=== PATIENT | male | born 1945 ===

== ENCOUNTER 2017-07-15 03:53 | Inpatient (IN) | payer OTHER ==
--- NOTE | 2017-07-15 04:01 | C.PDOC ---
History Of Present Illness pt was admitted to [facility], for hyperglycemia and nstemi. increasing troponin levels as well as hypotension, pt was transfered and accepted by dr leigh for emergent cardiac cath. Pt stable at the present time. BP 126/76 on levaphed Time Seen by Provider: 07/15/17 04:01 Chief Complaint (Nursing): Chest Pain History Per: Patient History/Exam Limitations: no limitations Onset/Duration Of Symptoms: Days Current Symptoms Are (Timing): Worse Context: Other Severity: Severe Pain Scale Rating Of: 7 Quality: Dull, Pressure Associated Symptoms: denies: Nausea Modifying Factors: None Exacerbating Factors: None Nitro Therapy Administered: 3 Recent travel outside of the [place]: No Additional History Per: Patient Past Medical History Reviewed: Historical Data, Nursing Documentation, Vital Signs Vital Signs: Last Vital Signs Temp 97.0 F L 07/15/17 04:10 Pulse 78 07/15/17 04:35 Resp 23 07/15/17 04:35 BP 115/65 07/15/17 04:35 Pulse Ox 94 L 07/15/17 05:10 - Medical History PMH: Diabetes, HTN Family History: States: No Known Family Hx - Social History Hx Alcohol Use: No Hx Substance Use: No Review Of Systems Constitutional: Negative for: Fever Eyes: Negative for: Redness ENT: Negative for: Throat Pain Cardiovascular: Positive for: Chest Pain Respiratory: Positive for: Shortness of Breath Gastrointestinal: Positive for: Nausea. Negative for: Abdominal Pain Musculoskeletal: Negative for: Back Pain Skin: Negative for: Rash Neurological: Negative for: Weakness Psych: Negative for: Anxiety Physical Exam - Physical Exam Appears: In Acute Distress Skin: Warm, Dry Head: Normacephalic Eye(s): bilateral: Normal Inspection Oral Mucosa: Moist Neck: Supple, Other (left IJ) Chest: Symmetrical Cardiovascular: Rhythm Regular Respiratory: No Rales, Rhonchi (few) Gastrointestinal/Abdominal: Soft, No Tenderness Back: No CVA Tenderness Extremity: Normal ROM, Other (poor vascular skin changes) Extremity: Bilateral: Atraumatic Pulses: Left Dorsalis Pedis: Normal, Right Dorsalis Pedis: Normal Neurological/Psych: Oriented x3 Gait: Unable To Assess ED Course And Treatment ECG: Interpreted By Me, Viewed By Me ECG Rhythm: Sinus Rhythm (82), ST/T Changes (ant ), Nonspecific Changes (ant wall mi) O2 Sat by Pulse Oximetry: 94 Pulse Ox Interpretation: Normal Disposition Discussed With DrShannon: Geoff Leigh Comment: accepted the pt on his service and took over the care at 4 AM Doctor Will See Patient In The: ED Counseled Patient/Family Regarding: Studies Performed, Diagnosis - Disposition Referrals: Fior Diaz [[employer]] - Disposition: HOSPITALIZED Disposition Time: 04:01 Condition: CRITICAL Forms: [facility] ([place]) - Clinical Impression Clinical Impression: Chest pain, NSTEMI (non-ST elevated myocardial infarction)
[2017-07-15] MEDS ORDERED: Iodixanol 320 MG/ML 200 ML BOTTLE IV ONE (05:30)
[2017-07-15] MEDS ORDERED: Heparin25000 units/250ml 1/2NS 25,000 UNITS/250 ML BAG IV PRN (07:30)
[2017-07-15] MEDS ORDERED: Propofol 10 mg/ml 1,000 MG/100 ML VIAL IV PRN (08:34)
[2017-07-15 08:57] LABS: ABG ALLEN TEST POS; ARTERIAL BLOOD GAS HCO3 15.7 mmol/L (21-28); ARTERIAL BLOOD GAS O2 SAT 85.7 % (95-98); ARTERIAL BLOOD GAS PCO2 39 mm/Hg (35-45); ARTERIAL BLOOD GAS PH 7.22 (7.35-7.45); ARTERIAL BLOOD GAS PO2 50 mm/Hg (80-100); ARTERIAL BLOOD GAS TCO2 17.2 mmol/L (22-28)
[2017-07-15 09:55] LABS: BASO # 0.1 K/uL (0.0-0.2); BASO % 0.6 % (0.0-2.0); HEMOGLOBIN 12.1 g/dL (12.0-18.0); LYMPH # 0.6 K/uL (1.0-4.3); LYMPH % 7.7 % (20.0-40.0); MEAN CELL VOLUME 89.9 fL (80.0-94.0); MEAN CORPUSCULAR HEMOGLOBIN 30.7 pg (27.0-31.0); MEAN CORPUSCULAR HGB CONC 34.2 g/dL (33.0-37.0); MEAN PLATELET VOLUME 7.8 fL (7.2-11.7); MONO # 0.2 K/uL (0.0-0.8); MONO % 2.4 % (0.0-10.0); NEUT # 7.1 K/uL (1.8-7.0); NEUT % 89.3 % (50.0-75.0); PLATELET COUNT 359 K/uL (130-400); RBC 3.93 Mil/uL (4.40-5.90); RED CELL DISTRIBUTION WIDTH 14.7 % (11.5-14.5); WHITE BLOOD COUNT 7.9 K/uL (4.8-10.8)
--- NOTE | 2017-07-15 09:59 | RAD ---
HISTORY: sob COMPARISON: No prior. FINDINGS: LUNGS: Diffuse opacification of both lungs predominantly in a perihilar distribution. PLEURA: No significant pleural effusion identified, no pneumothorax apparent. CARDIOVASCULAR: Atherosclerotic aortic calcifications. Cardiomediastinal silhouette within normal limits. OSSEOUS STRUCTURES: Degenerative changes. VISUALIZED UPPER ABDOMEN: Normal. OTHER FINDINGS: Endotracheal tube with tip between the clavicles and mandy. Enteric tube with tip in the stomach. Left internal jugular access central venous catheter with tip in the proximal SVC. Intra-aortic balloon pump marker approximately 2-3 centimeters inferior to the aortic knob. Overlying cardiac pacer pads. IMPRESSION: Diffuse pulmonary vascular congestion/ edema/ ARDS. Above described lines and tubes all in satisfactory position.
[2017-07-15 10:40] LABS: BANDS 31 % (0-2); LYMPHOCYTE 11 % (20-40); MONOCYTE 2 % (0-10); NEUTROPHIL 56 % (50-75); PLATELET ESTIMATE NORMAL (NORMAL); TOTAL CELLS COUNTED 100
[2017-07-15 10:41] LABS: BURR CELLS SLIGHT; TOXIC GRANULATION PRESENT
--- NOTE | 2017-07-15 10:48 | CP.CCUPN ---
CCU Objective - Vital Signs / Intake & Output Vital Signs (Last 4 hours): Vital Signs Temp Pulse Resp BP Pulse Ox 07/15/17 10:11 95.5 F L 07/15/17 10:00 104 H 21 88 L 07/15/17 09:56 90/40 L 07/15/17 09:50 104 H 20 88 L 07/15/17 09:40 105 H 21 131/78 89 L 07/15/17 09:30 99 H 19 87 L 07/15/17 09:20 100 H 16 88 L 07/15/17 09:10 106/64 07/15/17 09:00 98 H 19 94 L 07/15/17 08:50 98 H 19 95 07/15/17 08:40 100 H 17 148/76 94 L 07/15/17 08:38 18 95 07/15/17 08:31 113/64 07/15/17 08:30 100 H 20 95 07/15/17 08:20 111 H 24 95 07/15/17 08:11 98 H 18 150/75 96 07/15/17 08:10 98 H 18 97 07/15/17 08:00 97 H 18 97 07/15/17 07:50 95 H 19 97 07/15/17 07:40 94 H 16 96 07/15/17 07:30 90 15 94 L 07/15/17 07:28 88 18 96 Intake and Output (Last 8hrs): Intake & Output 07/14/17 07/15/17 07/15/17 22:59 06:59 14:59 Intake Total 197.4 Output Total 650 Balance -452.6 Weight 170 lb Intake: IV 0 Intake, IV Amount 147.4 Left Medial Port Internal 131.4 Jugular Left Proximal Port 16 Internal Jugular Right Hand 0 Oral 50 Output: Urine 650 Urethral (Scott) 650 Other: Voiding Method Indwelling Catheter - Medications Active Medications: Active Medications Generic Name Dose Route Start Last Admin Trade Name Freq PRN Reason Stop Dose Admin Heparin Sodium/Sodium Chloride 25,000 units in 250 mls @ 9.253 mls/hr 07:30 07/15/17 09:57 Heparin 61450 Units/250ml 1/2 Normal Saline IV 10.37 units/kg/hr .Q24H PRN 8 mls/hr PROTOCOL Titration Protocol 12 UNITS/KG/HR Norepinephrine Bitartrate 4 mg 254 mls @ 15.24 mls/hr 07/15/17 08:00 10:13 / Dextrose IV 15 mcg/min .[id number] PRN 57.15 mls/hr TITRATE PER MD ORDER Titration Protocol 4 MCG/MIN Azithromycin 500 mg/ Sodium 250 mls @ 250 mls/hr 07/15/17 11:00 Chloride IVPB DAILY KYLE Ceftriaxone Sodium 1 gm/ 100 mls @ 100 mls/hr 07/15/17 10:45 Sodium Chloride IVPB DAILY [facility] Lorazepam 2 mg 07/15/17 09:26 Ativan IVP Q2 PRN Anxiety Pantoprazole Sodium 40 mg 07/15/17 10:00 07/15/17 09:57 Protonix Inj IVP 40 mg DAILY KYLE Administration Rosuvastatin Calcium 40 mg 07/15/17 22:00 Crestor PO HS KYLE - Patient Studies Lab Studies: Lab Studies 07/15/17 07/15/17 07/15/17 Range/Units 09:46 09:46 08:53 WBC 7.9 (4.8-10.8) K/uL RBC 3.93 L (4.40-5.90) Mil/uL Hgb 12.1 (12.0-18.0) g/dL Hct 35.3 (35.0-51.0) % MCV 89.9 (80.0-94.0) fL MCH 30.7 (27.0-31.0) pg MCHC 34.2 (33.0-37.0) g/dL RDW 14.7 H (11.5-14.5) % Plt Count 359 (130-400) K/uL MPV 7.8 (7.2-11.7) fL Neut % (Auto) 89.3 H (50.0-75.0) % Lymph % (Auto) 7.7 L (20.0-40.0) % [place] % (Auto) 2.4 (0.0-10.0) % Eos % (Auto) 0.0 (0.0-4.0) % Baso % (Auto) 0.6 (0.0-2.0) % Neut # (Auto) 7.1 H (1.8-7.0) K/uL Lymph # (Auto) 0.6 L (1.0-4.3) K/uL [place] # (Auto) 0.2 (0.0-0.8) K/uL Eos # (Auto) 0.0 (0.0-0.7) K/uL Baso # (Auto) 0.1 (0.0-0.2) K/uL Neutrophils % (Manual) 56 (50-75) % Band Neutrophils % 31 H* (0-2) % Lymphocytes % (Manual) 11 L (20-40) % Monocytes % (Manual) 2 (0-10) % Toxic Granulation Present Platelet Estimate Normal (NORMAL) Nehemias Cells Slight Puncture Site Rr pCO2 39 (35-45) mm/Hg pO2 50 L (80-100) mm/Hg HCO3 15.7 L (21-28) mmol/L ABG pH 7.22 L (7.35-7.45) ABG Total CO2 17.2 L (22-28) mmol/L ABG O2 Saturation 85.7 L (95-98) % ABG Base Excess -11.1 L (-2.0-3.0) mmol/L Aman Test Pos ABG Potassium 5.1 (3.6-5.2) mmol/L A-a O2 Difference 614.0 mm/Hg Respiratory Index 12.3 Sodium 132.0 (132-148) mmol/l Chloride 102.0 (98-107) mmol/L Glucose 391 H (75-110) mg/dl Lactate 2.8 H (0.7-2.1) mmol/L Vent Mode Prvc Mechanical Rate 16 FiO2 100.0 % Tidal Volume 450 Carbon Dioxide 20 L (22-30) mmol/L Creatinine 3.2 H (0.8-1.5) mg/dL Est GFR ( Amer) 23 Est GFR (Non-Af Amer) 19 POC Glucose (mg/dL) (65-110) mg/dL Random Glucose 395 H (75-110) mg/dL ALT 43 (21-72) U/L Alkaline Phosphatase 106 (38-126) U/L Arterial Blood Potassium 5.1 (3.6-5.2) mmol/L 07/15/17 Range/Units 07:57 WBC (4.8-10.8) K/uL RBC (4.40-5.90) Mil/uL Hgb (12.0-18.0) g/dL Hct (35.0-51.0) % MCV (80.0-94.0) fL MCH (27.0-31.0) pg MCHC (33.0-37.0) g/dL RDW (11.5-14.5) % Plt Count (130-400) K/uL MPV (7.2-11.7) fL Neut % (Auto) (50.0-75.0) % Lymph % (Auto) (20.0-40.0) % [place] % (Auto) (0.0-10.0) % Eos % (Auto) (0.0-4.0) % Baso % (Auto) (0.0-2.0) % Neut # (Auto) (1.8-7.0) K/uL Lymph # (Auto) (1.0-4.3) K/uL [place] # (Auto) (0.0-0.8) K/uL Eos # (Auto) (0.0-0.7) K/uL Baso # (Auto) (0.0-0.2) K/uL Neutrophils % (Manual) (50-75) % Band Neutrophils % (0-2) % Lymphocytes % (Manual) (20-40) % Monocytes % (Manual) (0-10) % Toxic Granulation Platelet Estimate (NORMAL) [place] Cells Puncture Site pCO2 (35-45) mm/Hg pO2 (80-100) mm/Hg HCO3 (21-28) mmol/L ABG pH (7.35-7.45) ABG Total CO2 (22-28) mmol/L ABG O2 Saturation (95-98) % ABG Base Excess (-2.0-3.0) mmol/L Aman Test ABG Potassium (3.6-5.2) mmol/L A-a O2 Difference mm/Hg Respiratory Index Sodium (132-148) mmol/l Chloride (98-107) mmol/L Glucose (75-110) mg/dl Lactate (0.7-2.1) mmol/L Vent Mode Mechanical Rate FiO2 % Tidal Volume Carbon Dioxide (22-30) mmol/L Creatinine (0.8-1.5) mg/dL Est GFR ( Amer) Est GFR (Non-Af Amer) POC Glucose (mg/dL) 321 H (65-110) mg/dL Random Glucose (75-110) mg/dL ALT (21-72) U/L Alkaline Phosphatase (38-126) U/L Arterial Blood Potassium (3.6-5.2) mmol/L Laboratory Results - last 24 hr 07/15/17 07/15/17 07/15/17 07:57 08:53 09:46 WBC 7.9 RBC 3.93 L Hgb 12.1 Hct 35.3 MCV 89.9 MCH 30.7 MCHC 34.2 RDW 14.7 H Plt Count 359 MPV 7.8 Neut % (Auto) 89.3 H Lymph % (Auto) 7.7 L [place] % (Auto) 2.4 Eos % (Auto) 0.0 Baso % (Auto) 0.6 Neut # (Auto) 7.1 H Lymph # (Auto) 0.6 L [place] # (Auto) 0.2 Eos # (Auto) 0.0 Baso # (Auto) 0.1 Neutrophils % (Manual) 56 Band Neutrophils % 31 H* Lymphocytes % (Manual) 11 L Monocytes % (Manual) 2 Toxic Granulation Present Platelet Estimate Normal [place] Cells Slight Puncture Site Rr pCO2 39 pO2 50 L HCO3 15.7 L ABG pH 7.22 L ABG Total CO2 17.2 L ABG O2 Saturation 85.7 L ABG Base Excess -11.1 L Aman Test Pos ABG Potassium 5.1 A-a O2 Difference 614.0 Respiratory Index 12.3 Sodium 132.0 Chloride 102.0 Glucose 391 H Lactate 2.8 H Vent Mode Prvc Mechanical Rate 16 FiO2 100.0 Tidal Volume 450 Carbon Dioxide Creatinine Est GFR ( Amer) Est GFR (Non-Af Amer) POC Glucose (mg/dL) 321 H Random Glucose ALT Alkaline Phosphatase Arterial Blood Potassium 5.1 07/15/17 09:46 WBC RBC Hgb Hct MCV MCH MCHC RDW Plt Count MPV Neut % (Auto) Lymph % (Auto) [place] % (Auto) Eos % (Auto) Baso % (Auto) Neut # (Auto) Lymph # (Auto) [place] # (Auto) Eos # (Auto) Baso # (Auto) Neutrophils % (Manual) Band Neutrophils % Lymphocytes % (Manual) Monocytes % (Manual) Toxic Granulation Platelet Estimate [place] Cells Puncture Site pCO2 pO2 HCO3 ABG pH ABG Total CO2 ABG O2 Saturation ABG Base Excess Aman Test ABG Potassium A-a O2 Difference Respiratory Index Sodium Chloride Glucose Lactate Vent Mode Mechanical Rate FiO2 Tidal Volume Carbon Dioxide 20 L Creatinine 3.2 H Est GFR ( Amer) 23 Est GFR (Non-Af Amer) 19 POC Glucose (mg/dL) Random Glucose 395 H ALT 43 Alkaline Phosphatase 106 Arterial Blood Potassium EKG/Cardiology Studies: Cardiology / EKG Studies 07/15/17 04:01 EKG [ELECTROCARDIOGRAM] Stat Comment: Mode Of Transportation: BED Reason For Exam: cp Critical Care Progress Note - Nutrition Nutrition: Nutrition Category Date Time Status NPO Diet [DIET] Diets 07/15/17 Lunch Active
--- NOTE | 2017-07-15 10:49 | CP.PCM.CON ---
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 He is currently being mechanically ventilated and unable to provide history. L. main stem was stented, a-line inserted. balloon pump. septic shock 2/2 to likely pneumonia. started on levo for hypotension. Remains hypotensive. Will be transferred to [place] for further intervention. PMHx: DM, HTN PSHx: none Review of Systems - Review of Systems Review of Systems: per HPI Past Patient History - Infectious Disease Hx of Infectious Diseases: None - Past Medical History & Family History Past Medical History?: Yes - Past Social History Smoking Status: Unknown If Ever Smoked - CARDIAC Hx Cardiac Disorders: Yes Hx Hypertension: Yes - PULMONARY Hx Respiratory Disorders: No - NEUROLOGICAL Hx Neurological Disorder: No - HEENT Hx HEENT Problems: No - RENAL Hx Chronic Kidney Disease: No - ENDOCRINE/METABOLIC Hx Endocrine Disorders: Yes Hx Diabetes Mellitus Type 2: Yes - HEMATOLOGICAL/ONCOLOGICAL Hx Blood Disorders: No - INTEGUMENTARY Hx Dermatological Problems: Yes Other/Comment: BILAT STASIS ULCERS ANT,,SHINS - MUSCULOSKELETAL/RHEUMATOLOGICAL Hx Falls: No - GASTROINTESTINAL Hx Gastrointestinal Disorders: No - GENITOURINARY/GYNECOLOGICAL Hx Genitourinary Disorders: No - PSYCHIATRIC Hx Substance Use: No - SURGICAL HISTORY Hx Surgeries: No - ANESTHESIA Hx Anesthesia: No Hx Anesthesia Reactions: No Hx Malignant Hyperthermia: No Has any member of the family had a problem w/ anesthesia?: No Meds Allergies/Adverse Reactions: Allergies Allergy/AdvReac Type Severity Reaction Status Date / Time No Known Allergies Allergy Verified 07/15/17 03:56 - Medications Medications: Current Medications Heparin Sodium/Sodium Chloride (Heparin 45888 Units/250ml 1/2 Normal Saline) 25 ,000 units in 250 mls @ 9.253 mls/hr IV .Q24H PRN; Protocol; 12 UNITS/KG/HR PRN Reason: PROTOCOL Last Titration: 07/15/17 09:57 Dose: 10.37 units/kg/hr, 8 mls/hr Norepinephrine Bitartrate 4 mg (/ Dextrose) 254 mls @ 15.24 mls/hr IV .[id number] PRN; Protocol; 4 MCG/MIN PRN Reason: TITRATE PER MD ORDER Last Titration: 07/15/17 10:13 Dose: 15 mcg/min, 57.15 mls/hr Azithromycin 500 mg/ Sodium (Chloride) 250 mls @ 250 mls/hr IVPB DAILY [facility] Ceftriaxone Sodium 1 gm/ (Sodium Chloride) 100 mls @ 100 mls/hr IVPB DAILY [facility] Lorazepam (Ativan) 2 mg IVP Q2 PRN PRN Reason: Anxiety Pantoprazole Sodium (Protonix Inj) 40 mg IVP DAILY [facility] Last Admin: 07/15/17 09:57 Dose: 40 mg Rosuvastatin Calcium (Crestor) 40 mg PO HS [facility] Physical Exam - Constitutional Additional comments: intubated sedated - Head Exam Head Exam: ATRAUMATIC, NORMAL INSPECTION, NORMOCEPHALIC - Eye Exam Eye Exam: EOMI - ENT Exam ENT Exam: Mucous Membranes Moist - Respiratory Exam Additional comments: intubated - GI/Abdominal Exam GI & Abdominal Exam: Soft. absent: Distended, Tenderness - Neurological Exam Neurological exam: Alert - Skin Skin Exam: Dry, Intact, Normal Color, Warm Results - Vital Signs Recent Vital Signs: Last Vital Signs Temp 95.5 F L 07/15/17 10:11 Pulse 104 H 07/15/17 10:00 Resp 21 07/15/17 10:00 BP 90/40 L 07/15/17 09:56 Pulse Ox 88 L 07/15/17 10:00 - Labs Result Diagrams: 07/15/17 09:46 07/15/17 09:46 Labs: Laboratory Results - last 24 hr 07/15/17 07/15/17 07/15/17 07:57 08:53 09:46 WBC 7.9 RBC 3.93 L Hgb 12.1 Hct 35.3 MCV 89.9 MCH 30.7 MCHC 34.2 RDW 14.7 H Plt Count 359 MPV 7.8 Neut % (Auto) 89.3 H Lymph % (Auto) 7.7 L [place] % (Auto) 2.4 Eos % (Auto) 0.0 Baso % (Auto) 0.6 Neut # (Auto) 7.1 H Lymph # (Auto) 0.6 L [place] # (Auto) 0.2 Eos # (Auto) 0.0 Baso # (Auto) 0.1 Neutrophils % (Manual) 56 Band Neutrophils % 31 H* Lymphocytes % (Manual) 11 L Monocytes % (Manual) 2 Toxic Granulation Present Platelet Estimate Normal Nehemias Cells Slight Puncture Site Rr pCO2 39 pO2 50 L HCO3 15.7 L ABG pH 7.22 L ABG Total CO2 17.2 L ABG O2 Saturation 85.7 L ABG Base Excess -11.1 L Aman Test Pos ABG Potassium 5.1 A-a O2 Difference 614.0 Respiratory Index 12.3 Sodium 132.0 Chloride 102.0 Glucose 391 H Lactate 2.8 H Vent Mode Prvc Mechanical Rate 16 FiO2 100.0 Tidal Volume 450 Carbon Dioxide Creatinine Est GFR ( Amer) Est GFR (Non-Af Amer) POC Glucose (mg/dL) 321 H Random Glucose ALT Alkaline Phosphatase Arterial Blood Potassium 5.1 07/15/17 09:46 WBC RBC Hgb Hct MCV MCH MCHC RDW Plt Count MPV Neut % (Auto) Lymph % (Auto) [place] % (Auto) Eos % (Auto) Baso % (Auto) Neut # (Auto) Lymph # (Auto) [place] # (Auto) Eos # (Auto) Baso # (Auto) Neutrophils % (Manual) Band Neutrophils % Lymphocytes % (Manual) Monocytes % (Manual) Toxic Granulation Platelet Estimate Nehemias Cells Puncture Site pCO2 pO2 HCO3 ABG pH ABG Total CO2 ABG O2 Saturation ABG Base Excess Aman Test ABG Potassium A-a O2 Difference Respiratory Index Sodium Chloride Glucose Lactate Vent Mode Mechanical Rate FiO2 Tidal Volume Carbon Dioxide 20 L Creatinine 3.2 H Est GFR ( Amer) 23 Est GFR (Non-Af Amer) 19 POC Glucose (mg/dL) Random Glucose 395 H ALT 43 Alkaline Phosphatase 106 Arterial Blood Potassium Assessment & Plan - Assessment and Plan (Free Text) Assessment: 71 M 99% L. Main Occlusion Plan: Neuro: Sedated, ativan Cards: 99% L. Main occlusion, s/p stent, balloon pump patient has a-line, TLC Levo @ 20 remains hypotensive needs further intervention, transfer planned repeat echo to focus on possible VSD repeat trop was 500, will repeat Pulm: remains intubated saturated 80-90, cxr showed pulm edema, lasix given, sat improved GI: NPO, no acute issues Renal: CLIFF, Cr 3.3 Patient being transferred to [place] for further intervention <Daron Phelps S - Last Filed: 07/15/17 18:44> Results - Vital Signs Recent Vital Signs: Last Vital Signs Temp 97.8 F 07/15/17 12:00 Pulse 105 H 07/15/17 15:00 Resp 21 07/15/17 15:00 BP 142/83 07/15/17 14:39 Pulse Ox 94 L 07/15/17 15:00 - Labs Result Diagrams: 07/15/17 09:46 07/15/17 09:46 Labs: Laboratory Results - last 24 hr 07/15/17 07/15/17 07/15/17 07:57 08:53 09:46 WBC 7.9 RBC 3.93 L Hgb 12.1 Hct 35.3 MCV 89.9 MCH 30.7 MCHC 34.2 RDW 14.7 H Plt Count 359 MPV 7.8 Neut % (Auto) 89.3 H Lymph % (Auto) 7.7 L [place] % (Auto) 2.4 Eos % (Auto) 0.0 Baso % (Auto) 0.6 Neut # (Auto) 7.1 H Lymph # (Auto) 0.6 L [place] # (Auto) 0.2 Eos # (Auto) 0.0 Baso # (Auto) 0.1 Neutrophils % (Manual) 56 Band Neutrophils % 31 H* Lymphocytes % (Manual) 11 L Monocytes % (Manual) 2 Toxic Granulation Present Platelet Estimate Normal [place] Cells Slight Puncture Site Rr pCO2 39 pO2 50 L HCO3 15.7 L ABG pH 7.22 L ABG Total CO2 17.2 L ABG O2 Saturation 85.7 L ABG Base Excess -11.1 L Aman Test Pos ABG Potassium 5.1 A-a O2 Difference 614.0 Respiratory Index 12.3 Sodium 132.0 Chloride 102.0 Glucose 391 H Lactate 2.8 H Vent Mode Prvc Mechanical Rate 16 FiO2 100.0 Tidal Volume 450 Potassium Carbon Dioxide Anion Gap BUN Creatinine Est GFR ( Amer) Est GFR (Non-Af Amer) POC Glucose (mg/dL) 321 H Random Glucose Calcium Phosphorus Magnesium Total Bilirubin AST ALT Alkaline Phosphatase Total Creatine Kinase CK-MB (Mass) Troponin I NT-Pro-B Natriuret Pep Total Protein Albumin Globulin Albumin/Globulin Ratio Procalcitonin Arterial Blood Potassium 5.1 Ur L.pneumophila Ag Mycoplasma pneumon IgM 07/15/17 07/15/17 07/15/17 09:46 10:39 11:22 WBC RBC Hgb Hct MCV MCH MCHC RDW Plt Count MPV Neut % (Auto) Lymph % (Auto) [place] % (Auto) Eos % (Auto) Baso % (Auto) Neut # (Auto) Lymph # (Auto) [place] # (Auto) Eos # (Auto) Baso # (Auto) Neutrophils % (Manual) Band Neutrophils % Lymphocytes % (Manual) Monocytes % (Manual) Toxic Granulation Platelet Estimate Nehemias Cells Puncture Site pCO2 pO2 HCO3 ABG pH ABG Total CO2 ABG O2 Saturation ABG Base Excess Aman Test ABG Potassium A-a O2 Difference Respiratory Index Sodium 129 L Chloride 99 Glucose Lactate Vent Mode Mechanical Rate FiO2 Tidal Volume Potassium 5.6 H Carbon Dioxide 19 L Anion Gap 16 BUN 54 H Creatinine 3.3 H Est GFR ( Amer) 23 Est GFR (Non-Af Amer) 19 POC Glucose (mg/dL) Random Glucose 395 H Calcium 7.4 L Phosphorus 4.3 Magnesium 1.8 Total Bilirubin 1.2 AST 450 H D ALT 43 Alkaline Phosphatase 106 Total Creatine Kinase 2656 H CK-MB (Mass) 131 H Troponin I 501.0000 H* NT-Pro-B Natriuret Pep 8980 H Total Protein 6.8 Albumin 2.8 L Globulin 4.0 H Albumin/Globulin Ratio 0.7 L Procalcitonin 0.84 H Arterial Blood Potassium Ur L.pneumophila Ag Negative Mycoplasma pneumon IgM Negative 07/15/17 11:50 WBC RBC Hgb Hct MCV MCH MCHC RDW Plt Count MPV Neut % (Auto) Lymph % (Auto) [place] % (Auto) Eos % (Auto) Baso % (Auto) Neut # (Auto) Lymph # (Auto) [place] # (Auto) Eos # (Auto) Baso # (Auto) Neutrophils % (Manual) Band Neutrophils % Lymphocytes % (Manual) Monocytes % (Manual) Toxic Granulation Platelet Estimate Nehemias Cells Puncture Site pCO2 pO2 HCO3 ABG pH ABG Total CO2 ABG O2 Saturation ABG Base Excess Aman Test ABG Potassium A-a O2 Difference Respiratory Index Sodium Chloride Glucose Lactate Vent Mode Mechanical Rate FiO2 Tidal Volume Potassium Carbon Dioxide Anion Gap BUN Creatinine Est GFR ( Amer) Est GFR (Non-Af Amer) POC Glucose (mg/dL) 380 H Random Glucose Calcium Phosphorus Magnesium Total Bilirubin AST ALT Alkaline Phosphatase Total Creatine Kinase CK-MB (Mass) Troponin I NT-Pro-B Natriuret Pep Total Protein Albumin Globulin Albumin/Globulin Ratio Procalcitonin Arterial Blood Potassium Ur L.pneumophila Ag Mycoplasma pneumon IgM Attending/Attestation - Attestation I have personally seen and examined this patient.: Yes I have fully participated in the care of the patient.: Yes I have reviewed all pertinent clinical information: Yes Notes (Text): 07/15/17 18:42 Patient seen and examined Status post cardiac cath and stent placement LAD Status post balloon pump placement for hypotension and cardiogenic shock On ventilator support 100% FiO2 and Max of Levophed patient being transferred to [place] for further management Case discussed with jewel sorter
--- NOTE | 2017-07-15 10:49 | CP.PCM.HP ---
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 He is currently being mechanically ventilated and unable to provide history. L. main stem was stented, a-line inserted. balloon pump. septic shock 2/2 to likely pneumonia. started on levo for hypotension. Remains hypotensive. Will be transferred to [facility] for further intervention. PMHx: DM, HTN PSHx: none Present on Admission - Present on Admission Any Indicators Present on Admission: No Review of Systems - Review of Systems Review of Systems: Per HPI Past Patient History - Infectious Disease Hx of Infectious Diseases: None - Past Medical History & Family History Past Medical History?: Yes - Past Social History Smoking Status: Unknown If Ever Smoked - CARDIAC Hx Cardiac Disorders: Yes Hx Hypertension: Yes - PULMONARY Hx Respiratory Disorders: No - NEUROLOGICAL Hx Neurological Disorder: No - HEENT Hx HEENT Problems: No - RENAL Hx Chronic Kidney Disease: No - ENDOCRINE/METABOLIC Hx Endocrine Disorders: Yes Hx Diabetes Mellitus Type 2: Yes - HEMATOLOGICAL/ONCOLOGICAL Hx Blood Disorders: No - INTEGUMENTARY Hx Dermatological Problems: Yes Other/Comment: BILAT STASIS ULCERS ANT,,SHINS - MUSCULOSKELETAL/RHEUMATOLOGICAL Hx Falls: No - GASTROINTESTINAL Hx Gastrointestinal Disorders: No - GENITOURINARY/GYNECOLOGICAL Hx Genitourinary Disorders: No - PSYCHIATRIC Hx Substance Use: No - SURGICAL HISTORY Hx Surgeries: No - ANESTHESIA Hx Anesthesia: No Hx Anesthesia Reactions: No Hx Malignant Hyperthermia: No Has any member of the family had a problem w/ anesthesia?: No Meds Allergies/Adverse Reactions: Allergies Allergy/AdvReac Type Severity Reaction Status Date / Time No Known Allergies Allergy Verified 07/15/17 03:56 Physical Exam - Constitutional Appears: In Acute Distress - Head Exam Head Exam: ATRAUMATIC, NORMAL INSPECTION, NORMOCEPHALIC - Eye Exam Eye Exam: EOMI Pupil Exam: NORMAL ACCOMODATION - ENT Exam ENT Exam: Mucous Membranes Moist - Respiratory Exam Respiratory Exam: Rales - Cardiovascular Exam Cardiovascular Exam: Tachycardia - GI/Abdominal Exam GI & Abdominal Exam: Normal Bowel Sounds, Soft. absent: Distended, Tenderness - Extremities Exam Extremities exam: Negative for: joint swelling, tenderness - Neurological Exam Additional comments: sedated - Skin Skin Exam: Dry, Intact, Normal Color, Warm Results - Vital Signs Recent Vital Signs: Last Vital Signs Temp 95.5 F L 07/15/17 10:11 Pulse 104 H 07/15/17 10:00 Resp 21 07/15/17 10:00 BP 90/40 L 07/15/17 09:56 Pulse Ox 88 L 07/15/17 10:00 - Labs Result Diagrams: 07/15/17 09:46 07/15/17 09:46 Labs: Laboratory Results - last 24 hr 07/15/17 07/15/17 07/15/17 07:57 08:53 09:46 WBC 7.9 RBC 3.93 L Hgb 12.1 Hct 35.3 MCV 89.9 MCH 30.7 MCHC 34.2 RDW 14.7 H Plt Count 359 MPV 7.8 Neut % (Auto) 89.3 H Lymph % (Auto) 7.7 L Weakley % (Auto) 2.4 Eos % (Auto) 0.0 Baso % (Auto) 0.6 Neut # (Auto) 7.1 H Lymph # (Auto) 0.6 L Weakley # (Auto) 0.2 Eos # (Auto) 0.0 Baso # (Auto) 0.1 Neutrophils % (Manual) 56 Band Neutrophils % 31 H* Lymphocytes % (Manual) 11 L Monocytes % (Manual) 2 Toxic Granulation Present Platelet Estimate Normal Nehemias Cells Slight Puncture Site Rr pCO2 39 pO2 50 L HCO3 15.7 L ABG pH 7.22 L ABG Total CO2 17.2 L ABG O2 Saturation 85.7 L ABG Base Excess -11.1 L Aman Test Pos ABG Potassium 5.1 A-a O2 Difference 614.0 Respiratory Index 12.3 Sodium 132.0 Chloride 102.0 Glucose 391 H Lactate 2.8 H Vent Mode Prvc Mechanical Rate 16 FiO2 100.0 Tidal Volume 450 Carbon Dioxide Creatinine Est GFR ( Amer) Est GFR (Non-Af Amer) POC Glucose (mg/dL) 321 H Random Glucose ALT Alkaline Phosphatase Arterial Blood Potassium 5.1 07/15/17 09:46 WBC RBC Hgb Hct MCV MCH MCHC RDW Plt Count MPV Neut % (Auto) Lymph % (Auto) Weakley % (Auto) Eos % (Auto) Baso % (Auto) Neut # (Auto) Lymph # (Auto) Weakley # (Auto) Eos # (Auto) Baso # (Auto) Neutrophils % (Manual) Band Neutrophils % Lymphocytes % (Manual) Monocytes % (Manual) Toxic Granulation Platelet Estimate [place] Cells Puncture Site pCO2 pO2 HCO3 ABG pH ABG Total CO2 ABG O2 Saturation ABG Base Excess Aman Test ABG Potassium A-a O2 Difference Respiratory Index Sodium Chloride Glucose Lactate Vent Mode Mechanical Rate FiO2 Tidal Volume Carbon Dioxide 20 L Creatinine 3.2 H Est GFR ( Amer) 23 Est GFR (Non-Af Amer) 19 POC Glucose (mg/dL) Random Glucose 395 H ALT 43 Alkaline Phosphatase 106 Arterial Blood Potassium Assessment & Plan (1) NSTEMI (non-ST elevated myocardial infarction) Assessment and Plan: 99% occlusion of L. main stent placed echo shows VSD ef 40 levo for hypotension balloon pump cxr pulm edema, lasix given brillinta asa crestor patient being trasnferred to [place] for further intervention Status: Acute Priority: High <Tamra Avila V - Last Filed: 07/16/17 00:40> Results - Vital Signs Recent Vital Signs: Last Vital Signs Temp 97.8 F 07/15/17 12:00 Pulse 105 H 07/15/17 15:00 Resp 21 07/15/17 15:00 BP 142/83 07/15/17 14:39 Pulse Ox 94 L 07/15/17 15:00 - Labs Result Diagrams: 07/15/17 09:46 07/15/17 09:46 Labs: Laboratory Results - last 24 hr 07/15/17 07/15/17 07/15/17 07:57 08:53 09:46 WBC 7.9 RBC 3.93 L Hgb 12.1 Hct 35.3 MCV 89.9 MCH 30.7 MCHC 34.2 RDW 14.7 H Plt Count 359 MPV 7.8 Neut % (Auto) 89.3 H Lymph % (Auto) 7.7 L Weakley % (Auto) 2.4 Eos % (Auto) 0.0 Baso % (Auto) 0.6 Neut # (Auto) 7.1 H Lymph # (Auto) 0.6 L Weakley # (Auto) 0.2 Eos # (Auto) 0.0 Baso # (Auto) 0.1 Neutrophils % (Manual) 56 Band Neutrophils % 31 H* Lymphocytes % (Manual) 11 L Monocytes % (Manual) 2 Toxic Granulation Present Platelet Estimate Normal [place] Cells Slight Puncture Site Rr pCO2 39 pO2 50 L HCO3 15.7 L ABG pH 7.22 L ABG Total CO2 17.2 L ABG O2 Saturation 85.7 L ABG Base Excess -11.1 L Aman Test Pos ABG Potassium 5.1 A-a O2 Difference 614.0 Respiratory Index 12.3 Sodium 132.0 Chloride 102.0 Glucose 391 H Lactate 2.8 H Vent Mode Prvc Mechanical Rate 16 FiO2 100.0 Tidal Volume 450 Potassium Carbon Dioxide Anion Gap BUN Creatinine Est GFR ( Amer) Est GFR (Non-Af Amer) POC Glucose (mg/dL) 321 H Random Glucose Calcium Phosphorus Magnesium Total Bilirubin AST ALT Alkaline Phosphatase Total Creatine Kinase CK-MB (Mass) Troponin I NT-Pro-B Natriuret Pep Total Protein Albumin Globulin Albumin/Globulin Ratio Procalcitonin Arterial Blood Potassium 5.1 Ur L.pneumophila Ag Mycoplasma pneumon IgM 07/15/17 07/15/17 07/15/17 09:46 10:39 11:22 WBC RBC Hgb Hct MCV MCH MCHC RDW Plt Count MPV Neut % (Auto) Lymph % (Auto) Weakley % (Auto) Eos % (Auto) Baso % (Auto) Neut # (Auto) Lymph # (Auto) Weakley # (Auto) Eos # (Auto) Baso # (Auto) Neutrophils % (Manual) Band Neutrophils % Lymphocytes % (Manual) Monocytes % (Manual) Toxic Granulation Platelet Estimate Nehemias Cells Puncture Site pCO2 pO2 HCO3 ABG pH ABG Total CO2 ABG O2 Saturation ABG Base Excess Aman Test ABG Potassium A-a O2 Difference Respiratory Index Sodium 129 L Chloride 99 Glucose Lactate Vent Mode Mechanical Rate FiO2 Tidal Volume Potassium 5.6 H Carbon Dioxide 19 L Anion Gap 16 BUN 54 H Creatinine 3.3 H Est GFR ( Amer) 23 Est GFR (Non-Af Amer) 19 POC Glucose (mg/dL) Random Glucose 395 H Calcium 7.4 L Phosphorus 4.3 Magnesium 1.8 Total Bilirubin 1.2 AST 450 H D ALT 43 Alkaline Phosphatase 106 Total Creatine Kinase 2656 H CK-MB (Mass) 131 H Troponin I 501.0000 H* NT-Pro-B Natriuret Pep 8980 H Total Protein 6.8 Albumin 2.8 L Globulin 4.0 H Albumin/Globulin Ratio 0.7 L Procalcitonin 0.84 H Arterial Blood Potassium Ur L.pneumophila Ag Negative Mycoplasma pneumon IgM Negative 07/15/17 11:50 WBC RBC Hgb Hct MCV MCH MCHC RDW Plt Count MPV Neut % (Auto) Lymph % (Auto) Weakley % (Auto) Eos % (Auto) Baso % (Auto) Neut # (Auto) Lymph # (Auto) Weakley # (Auto) Eos # (Auto) Baso # (Auto) Neutrophils % (Manual) Band Neutrophils % Lymphocytes % (Manual) Monocytes % (Manual) Toxic Granulation Platelet Estimate [place] Cells Puncture Site pCO2 pO2 HCO3 ABG pH ABG Total CO2 ABG O2 Saturation ABG Base Excess Aman Test ABG Potassium A-a O2 Difference Respiratory Index Sodium Chloride Glucose Lactate Vent Mode Mechanical Rate FiO2 Tidal Volume Potassium Carbon Dioxide Anion Gap BUN Creatinine Est GFR ( Amer) Est GFR (Non-Af Amer) POC Glucose (mg/dL) 380 H Random Glucose Calcium Phosphorus Magnesium Total Bilirubin AST ALT Alkaline Phosphatase Total Creatine Kinase CK-MB (Mass) Troponin I NT-Pro-B Natriuret Pep Total Protein Albumin Globulin Albumin/Globulin Ratio Procalcitonin Arterial Blood Potassium Ur L.pneumophila Ag Mycoplasma pneumon IgM Attending/Attestation - Attestation I have personally seen and examined this patient.: Yes I have fully participated in the care of the patient.: Yes I have reviewed all pertinent clinical information: Yes Notes (Text): This is late computer entry for 07/15/17. Patient seen, examined and case discussed with ICU and Cardiology. Patient is admitted under the hospitalist service awaiting transfer to [place] for further cardiac intervention. Note: patient is intubated, sedated with A-Line, ad IJ Line placed at [facility] ICU 07/15/17. Patient unable to provide history secondary to acute events noted in [facility] EMR 07/14/17-07/15/17. Per review of patient's record at [facility], listed in separate record in the electronic medical record under the the hospitalist service. Per [facility], "HPI: 71M PMH hypertension, diabetes, presents with acute onset worsening moderate to severe diarrhea x5 episodes within two hours, associated with emesis. In ED EKG showed ST depressions lateral leads, Troponin 0.488, currently without any chest pain. Heparin drip initiated. He also developed O2 requirement, on nonrebreather saturating 93%, BP initially 146/65, now ranging from 98-104 systolic. Glucose 623 on admission, no acidosis. US Abd - mild GB wall thickening, no cholelithiasis or cholecystitis, CXR - possible diffuse intersitial fibrotic changes? BNP and repeat troponin currently pending. EKGs reviewed with ED physician as well as code heart physician, no code heart at this time. Pt also noted to have ulcers bilateral feet, podiatry consulted. ROS : Per HPI, all other systems reviewed negative by me PMH: HTN, DM PSH: denies FH: denies SH: denies tobacco, etoh, ivdu ALLERGIES: NKDA MEDICATIONS: reviewed and as bel" At that time patient was admitted to the ICU. At [facility] ICU, "patient repeat Tn appx 24, became hypotensive, awake alert oriented, central line placed and Levophed initiated. Pt + crackes, maintained 100% on nonrebreather, Lasix given. CODE HEART initiated and patient transferred to [facility] for emergent cardiac cath. HD stable for transfer." Patient was transferred to [facility] as a "Code Heart". Patient transfer from [facility] who presented for cardiac cath with Dr. Gaspar, tobacco educator on air personality per code heart protocol. At 5:42AM LEGAL SECRETARY at [facility] upon transfer from [facility] was called and patient subsequently became pulseless. Chest compressions were started, atropine was pushed x1. Anesthesia and code team were present on site. Patient was intubated. He is being prepared for transfer for emergent open heart surgery. [facility] is being contacted for acceptance." At [facility] 07/15/17, patient underwent cardiac cath showing cath for 99% occlusion in the L. main stem and admitted to the critical care s/p cardiac cath. He is currently being mechanically ventilated and unable to provide history given clinical condition. L. main stem was stented, a-line inserted. Patient currently on balloon pump. s/p cardiogenic shock on pressor. Cardiology Dr. Gaspar in the case. Cardiology has arranged transferred to [facility] for further cardiac intervention. Case discussed with cardiology who has spoken with patient's regarding patient's critical condition. Patient transferred to [place] for further cardiac intervention today.
[2017-07-15] MEDS ORDERED: Azithromycin 500 MG in Sodium Chloride 0.9% 250 ML IVPB SCH (11:00)
[2017-07-15 11:08] LABS: ALB/GLOB RATIO 0.7 (1.0-2.1); ALBUMIN 2.8 g/dL (3.5-5.0); CALCIUM 7.4 mg/dl (8.6-10.4)
[2017-07-15] MEDS ORDERED: (Novolin R) Insulin Human Regular 100 units/ml vial IV ONE (11:09)
[2017-07-15] MEDS ORDERED: Sodium Bicarbonate (8.4%) 50 Meq Syringe IVP ONE (11:09)
[2017-07-15 12:34] VITALS: TEMP 97.8
[2017-07-15 13:05] LABS: LEGIONELLA AG URINE NEGATIVE (NEGATIVE)
[2017-07-15 13:08] LABS: MYCOPLASMA PNEUMONIAE IGM NEGATIVE (NEGATIVE)
[2017-07-15 16:38] VITALS: BP 142/83; PULSE 105; RESP 21; O2SAT 94
--- NOTE | 2017-07-15 17:07 | CP.PCM.DIS ---
<Braydon Olivares - Last Filed: 07/15/17 17:03> Provider - Provider Date of Admission: 07/15/17 07:13 Attending physician: Tamra Avila DO Consults: cardio: reese Time Spent in preparation of Discharge (in minutes): 35 Diagnosis - Discharge Diagnosis (1) NSTEMI (non-ST elevated myocardial infarction) Status: Acute Priority: High Hospital Course - Lab Results Lab Results: Most Recent Lab Values WBC 7.9 K/uL (4.8-10.8) 07/15/17 09:46 RBC 3.93 Mil/uL (4.40-5.90) L 07/15/17 09:46 Hgb 12.1 g/dL (12.0-18.0) 07/15/17 09:46 Hct 35.3 % (35.0-51.0) 07/15/17 09:46 MCV 89.9 fL (80.0-94.0) 07/15/17 09:46 MCH 30.7 pg (27.0-31.0) 07/15/17 09:46 MCHC 34.2 g/dL (33.0-37.0) 07/15/17 09:46 RDW 14.7 % (11.5-14.5) H 07/15/17 09:46 Plt Count 359 K/uL (130-400) 07/15/17 09:46 MPV 7.8 fL (7.2-11.7) 07/15/17 09:46 Neut % (Auto) 89.3 % (50.0-75.0) H 07/15/17 09:46 Lymph % (Auto) 7.7 % (20.0-40.0) L 07/15/17 09:46 Kane % (Auto) 2.4 % (0.0-10.0) 07/15/17 09:46 Eos % (Auto) 0.0 % (0.0-4.0) 07/15/17 09:46 Baso % (Auto) 0.6 % (0.0-2.0) 07/15/17 09:46 Neut # (Auto) 7.1 K/uL (1.8-7.0) H 07/15/17 09:46 Lymph # (Auto) 0.6 K/uL (1.0-4.3) L 07/15/17 09:46 Kane # (Auto) 0.2 K/uL (0.0-0.8) 07/15/17 09:46 Eos # (Auto) 0.0 K/uL (0.0-0.7) 07/15/17 09:46 Baso # (Auto) 0.1 K/uL (0.0-0.2) 07/15/17 09:46 Neutrophils % (Manual) 56 % (50-75) 07/15/17 09:46 Band Neutrophils % 31 % (0-2) H* 07/15/17 09:46 Lymphocytes % (Manual) 11 % (20-40) L 07/15/17 09:46 Monocytes % (Manual) 2 % (0-10) 07/15/17 09:46 Toxic Granulation Present 07/15/17 09:46 Platelet Estimate Normal (NORMAL) 07/15/17 09:46 Nehemias Cells Slight 07/15/17 09:46 Puncture Site Rr 07/15/17 08:53 pCO2 39 mm/Hg (35-45) 07/15/17 08:53 pO2 50 mm/Hg (80-100) L 07/15/17 08:53 HCO3 15.7 mmol/L (21-28) L 07/15/17 08:53 ABG pH 7.22 (7.35-7.45) L 07/15/17 08:53 ABG Total CO2 17.2 mmol/L (22-28) L 07/15/17 08:53 ABG O2 Saturation 85.7 % (95-98) L 07/15/17 08:53 ABG Base Excess -11.1 mmol/L (-2.0-3.0) L 07/15/17 08:53 Aman Test Pos 07/15/17 08:53 ABG Potassium 5.1 mmol/L (3.6-5.2) 07/15/17 08:53 A-a O2 Difference 614.0 mm/Hg 07/15/17 08:53 Respiratory Index 12.3 07/15/17 08:53 Sodium 132.0 mmol/l (132-148) 07/15/17 08:53 Chloride 102.0 mmol/L (98-107) 07/15/17 08:53 Glucose 391 mg/dl (75-110) H 07/15/17 08:53 Lactate 2.8 mmol/L (0.7-2.1) H 07/15/17 08:53 Vent Mode Prvc 07/15/17 08:53 Mechanical Rate 16 07/15/17 08:53 FiO2 100.0 % 07/15/17 08:53 Tidal Volume 450 07/15/17 08:53 Sodium 129 mmol/L (132-148) L 07/15/17 09:46 Potassium 5.6 mmol/L (3.6-5.2) H 07/15/17 09:46 Chloride 99 mmol/L (98-107) 07/15/17 09:46 Carbon Dioxide 19 mmol/L (22-30) L 07/15/17 09:46 Anion Gap 16 (10-20) 07/15/17 09:46 BUN 54 mg/dL (9-20) H 07/15/17 09:46 Creatinine 3.3 mg/dL (0.8-1.5) H 07/15/17 09:46 Est GFR ( Amer) 23 07/15/17 09:46 Est GFR (Non-Af Amer) 19 07/15/17 09:46 POC Glucose (mg/dL) 380 mg/dL (65-110) H 07/15/17 11:50 Random Glucose 395 mg/dL (75-110) H 07/15/17 09:46 Calcium 7.4 mg/dl (8.6-10.4) L 07/15/17 09:46 Phosphorus 4.3 mg/dL (2.5-4.5) 07/15/17 09:46 Magnesium 1.8 mg/dL (1.6-2.3) 07/15/17 09:46 Total Bilirubin 1.2 mg/dL (0.2-1.3) 07/15/17 09:46 AST 450 U/L (17-59) H D 07/15/17 09:46 ALT 43 U/L (21-72) 07/15/17 09:46 Alkaline Phosphatase 106 U/L (38-126) 07/15/17 09:46 Total Creatine Kinase 2656 U/L (55-170) H 07/15/17 10:39 CK-MB (Mass) 131 ng/mL (0.0-3.38) H 07/15/17 10:39 Troponin I 501.0000 ng/mL (0.00-0.120) H* 07/15/17 10:39 NT-Pro-B Natriuret Pep 8980 pg/mL (0-900) H 07/15/17 10:39 Total Protein 6.8 g/dL (6.3-8.3) 07/15/17 09:46 Albumin 2.8 g/dL (3.5-5.0) L 07/15/17 09:46 Globulin 4.0 gm/dL (2.2-3.9) H 07/15/17 09:46 Albumin/Globulin Ratio 0.7 (1.0-2.1) L 07/15/17 09:46 Procalcitonin 0.84 NG/ML (0.19-0.49) H 07/15/17 11:22 Arterial Blood Potassium 5.1 mmol/L (3.6-5.2) 07/15/17 08:53 Ur L.pneumophila Ag Negative (NEGATIVE) 07/15/17 11:22 Mycoplasma pneumon IgM Negative (NEGATIVE) 07/15/17 11:22 - Hospital Course Hospital Course: Hospital Course 71 year-old male presented to the ICU after cardiac cath for 99% occlusion in the L. main stem. He is currently being mechanically ventilated and unable to provide history. L. main stem was stented, a-line inserted. balloon pump. septic shock 2/2 to likely pneumonia. started on levo for hypotension. Remains hypotensive. Will be transferred to [facility] for further intervention. Discharge Exam - Head Exam Head Exam: ATRAUMATIC, NORMAL INSPECTION, NORMOCEPHALIC - ENT Exam ENT Exam: Mucous Membranes Moist - Respiratory Exam Respiratory Exam: Rales - Cardiovascular Exam Cardiovascular Exam: Tachycardia - GI/Abdominal Exam GI & Abdominal Exam: Normal Bowel Sounds, Soft. absent: Distended, Tenderness - Neurological Exam Neurological exam: Alert, Oriented x3 Discharge Plan - Follow Up Plan Condition: CRITICAL Disposition: Trans to Other Acute Care Hosp Instructions: Coronary Artery Bypass Graft (GEN) Referrals: Fior Diaz [[employer]] - <Tamra Avila V - Last Filed: 07/16/17 00:45> Provider - Provider Date of Admission: 07/15/17 07:13 Attending physician: Tamra Avila DO Diagnosis - Discharge Diagnosis (1) Cardiac arrest Status: Acute (2) Non-STEMI (non-ST elevated myocardial infarction) Status: Acute (3) Cardiogenic shock Status: Acute (4) History of diabetes mellitus Status: Acute (5) History of hypertension Status: Acute (6) Coronary artery disease Status: Acute Hospital Course - Lab Results Lab Results: Most Recent Lab Values WBC 7.9 K/uL (4.8-10.8) 07/15/17 09:46 RBC 3.93 Mil/uL (4.40-5.90) L 07/15/17 09:46 Hgb 12.1 g/dL (12.0-18.0) 07/15/17 09:46 Hct 35.3 % (35.0-51.0) 07/15/17 09:46 MCV 89.9 fL (80.0-94.0) 07/15/17 09:46 MCH 30.7 pg (27.0-31.0) 07/15/17 09:46 MCHC 34.2 g/dL (33.0-37.0) 07/15/17 09:46 RDW 14.7 % (11.5-14.5) H 07/15/17 09:46 Plt Count 359 K/uL (130-400) 07/15/17 09:46 MPV 7.8 fL (7.2-11.7) 07/15/17 09:46 Neut % (Auto) 89.3 % (50.0-75.0) H 07/15/17 09:46 Lymph % (Auto) 7.7 % (20.0-40.0) L 07/15/17 09:46 Kane % (Auto) 2.4 % (0.0-10.0) 07/15/17 09:46 Eos % (Auto) 0.0 % (0.0-4.0) 07/15/17 09:46 Baso % (Auto) 0.6 % (0.0-2.0) 07/15/17 09:46 Neut # (Auto) 7.1 K/uL (1.8-7.0) H 07/15/17 09:46 Lymph # (Auto) 0.6 K/uL (1.0-4.3) L 07/15/17 09:46 Kane # (Auto) 0.2 K/uL (0.0-0.8) 07/15/17 09:46 Eos # (Auto) 0.0 K/uL (0.0-0.7) 07/15/17 09:46 Baso # (Auto) 0.1 K/uL (0.0-0.2) 07/15/17 09:46 Neutrophils % (Manual) 56 % (50-75) 07/15/17 09:46 Band Neutrophils % 31 % (0-2) H* 07/15/17 09:46 Lymphocytes % (Manual) 11 % (20-40) L 07/15/17 09:46 Monocytes % (Manual) 2 % (0-10) 07/15/17 09:46 Toxic Granulation Present 07/15/17 09:46 Platelet Estimate Normal (NORMAL) 07/15/17 09:46 Kingsbury Cells Slight 07/15/17 09:46 Puncture Site Rr 07/15/17 08:53 pCO2 39 mm/Hg (35-45) 07/15/17 08:53 pO2 50 mm/Hg (80-100) L 07/15/17 08:53 HCO3 15.7 mmol/L (21-28) L 07/15/17 08:53 ABG pH 7.22 (7.35-7.45) L 07/15/17 08:53 ABG Total CO2 17.2 mmol/L (22-28) L 07/15/17 08:53 ABG O2 Saturation 85.7 % (95-98) L 07/15/17 08:53 ABG Base Excess -11.1 mmol/L (-2.0-3.0) L 07/15/17 08:53 Aman Test Pos 07/15/17 08:53 ABG Potassium 5.1 mmol/L (3.6-5.2) 07/15/17 08:53 A-a O2 Difference 614.0 mm/Hg 07/15/17 08:53 Respiratory Index 12.3 07/15/17 08:53 Sodium 132.0 mmol/l (132-148) 07/15/17 08:53 Chloride 102.0 mmol/L (98-107) 07/15/17 08:53 Glucose 391 mg/dl (75-110) H 07/15/17 08:53 Lactate 2.8 mmol/L (0.7-2.1) H 07/15/17 08:53 Vent Mode Prvc 07/15/17 08:53 Mechanical Rate 16 07/15/17 08:53 FiO2 100.0 % 07/15/17 08:53 Tidal Volume 450 07/15/17 08:53 Sodium 129 mmol/L (132-148) L 07/15/17 09:46 Potassium 5.6 mmol/L (3.6-5.2) H 07/15/17 09:46 Chloride 99 mmol/L (98-107) 07/15/17 09:46 Carbon Dioxide 19 mmol/L (22-30) L 07/15/17 09:46 Anion Gap 16 (10-20) 07/15/17 09:46 BUN 54 mg/dL (9-20) H 07/15/17 09:46 Creatinine 3.3 mg/dL (0.8-1.5) H 07/15/17 09:46 Est GFR ( Amer) 23 07/15/17 09:46 Est GFR (Non-Af Amer) 19 07/15/17 09:46 POC Glucose (mg/dL) 380 mg/dL (65-110) H 07/15/17 11:50 Random Glucose 395 mg/dL (75-110) H 07/15/17 09:46 Calcium 7.4 mg/dl (8.6-10.4) L 07/15/17 09:46 Phosphorus 4.3 mg/dL (2.5-4.5) 07/15/17 09:46 Magnesium 1.8 mg/dL (1.6-2.3) 07/15/17 09:46 Total Bilirubin 1.2 mg/dL (0.2-1.3) 07/15/17 09:46 AST 450 U/L (17-59) H D 07/15/17 09:46 ALT 43 U/L (21-72) 07/15/17 09:46 Alkaline Phosphatase 106 U/L (38-126) 07/15/17 09:46 Total Creatine Kinase 2656 U/L (55-170) H 07/15/17 10:39 CK-MB (Mass) 131 ng/mL (0.0-3.38) H 07/15/17 10:39 Troponin I 501.0000 ng/mL (0.00-0.120) H* 07/15/17 10:39 NT-Pro-B Natriuret Pep 8980 pg/mL (0-900) H 07/15/17 10:39 Total Protein 6.8 g/dL (6.3-8.3) 07/15/17 09:46 Albumin 2.8 g/dL (3.5-5.0) L 07/15/17 09:46 Globulin 4.0 gm/dL (2.2-3.9) H 07/15/17 09:46 Albumin/Globulin Ratio 0.7 (1.0-2.1) L 07/15/17 09:46 Procalcitonin 0.84 NG/ML (0.19-0.49) H 07/15/17 11:22 Arterial Blood Potassium 5.1 mmol/L (3.6-5.2) 07/15/17 08:53 Ur L.pneumophila Ag Negative (NEGATIVE) 07/15/17 11:22 Mycoplasma pneumon IgM Negative (NEGATIVE) 07/15/17 11:22 Attending/Attestation - Attestation I have personally seen and examined this patient.: Yes I have fully participated in the care of the patient.: Yes I have reviewed all pertinent clinical information, including history, physical exam and plan: Yes Notes (Text): This is late computer entry for 07/15/17. Patient seen, examined and case discussed with ICU and Cardiology. Patient is admitted under the hospitalist service at [facility] awaiting transfer to [facility] for further cardiac intervention. Note: patient is intubated, sedated with A-Line, ad IJ Line placed at [place] ICU 07/15/17. Patient unable to provide history secondary to acute events noted in [place] [facility] EMR 07/14/17-07/15/17. Per review of patient's record at [facility], listed in separate record in the electronic medical record under the the hospitalist service. Per [facility]arc[facility], "HPI: 71M PMH hypertension, diabetes, presents with acute onset worsening moderate to severe diarrhea x5 episodes within two hours, associated with emesis. In ED EKG showed ST depressions lateral leads, Troponin 0.488, currently without any chest pain. Heparin drip initiated. He also developed O2 requirement, on nonrebreather saturating 93%, BP initially 146/65, now ranging from 98-104 systolic. Glucose 623 on admission, no acidosis. US Abd - mild GB wall thickening, no cholelithiasis or cholecystitis, CXR - possible diffuse intersitial fibrotic changes? BNP and repeat troponin currently pending. EKGs reviewed with ED physician as well as code heart physician, no code heart at this time. Pt also noted to have ulcers bilateral feet, podiatry consulted. ROS : Per HPI, all other systems reviewed negative by me PMH: HTN, DM PSH: denies FH: denies SH: denies tobacco, etoh, ivdu ALLERGIES: NKDA MEDICATIONS: reviewed and as bel" At that time patient was admitted to the ICU. At [place] [facility] ICU, "patient repeat Tn appx 24, became hypotensive, awake alert oriented, central line placed and Levophed initiated. Pt + crackes, maintained 100% on nonrebreather, Lasix given. CODE HEART initiated and patient transferred to [facility] for emergent cardiac cath. HD stable for transfer." Patient was transferred to [facility] as a "Code Heart". Patient transfer from [place] who presented for cardiac cath with Dr. Gaspar, air conditioning insulation installer j2ee consultant per code heart protocol. At 5:42AM INTERPRETATIVE DANCER at [facility] upon transfer from [place] was called and patient subsequently became pulseless. Chest compressions were started, atropine was pushed x1. Anesthesia and code team were present on site. Patient was intubated. He is being prepared for transfer for emergent open heart surgery. [facility] is being contacted for acceptance." At [facility] 07/15/17, patient underwent cardiac cath showing cath for 99% occlusion in the L. main stem and admitted to the critical care s/p cardiac cath. He is currently being mechanically ventilated and unable to provide history given clinical condition. L. main stem was stented, a-line inserted. Patient currently on balloon pump. s/p cardiogenic shock on pressor. Cardiology Dr. Gaspar in the case. Cardiology has arranged transferred to [facility] for further cardiac intervention. Case discussed with cardiology who has spoken with patient's regarding patient's critical condition and transfer to [facility]. Patient transferred to [facility] for further cardiac intervention.
--- NOTE | 2017-07-15 19:09 | PN ---
DATE: SUBJECTIVE: The patient is a 71-year-old male who was admitted last evening to [facility] for uncontrolled diabetes mellitus. The patient did experience epigastric discomfort during this admission. I did review the case with the admitting emergency room physician. The patient had abnormal EKG with significant anterior ST-segment depression and borderline elevated troponin at 0.488. The patient was also found to have advanced renal insufficiency of BUN and creatinine of 60 and 3.4. I recommended to admit the patient to ICU, starting intravenous heparin in therapeutic regimen, aspirin, Plavix, Lipitor, and beta blockers. All were initiated and the patient was admitted to the ICU; however, early this morning, the patient became hypertensive. Code heart was activated and the patient was transferred to [facility] Rate [facility]. I did discuss the findings with Dr. Gaspar, the legal internship, who stated to me that the patient had critical left main disease, required stenting, required intubation, mechanical ventilation in the cardiac dairy laboratory technician, and balloon pump insertion. He is currently in the ICU on the vent and intraaortic balloon pump with augmentation ratio of 1:1 and on Levophed infusion and he is in a process of being transferred to either [facility] or to [facility] for Impella insertion. PHYSICAL EXAMINATION: VITAL SIGNS: Blood pressure 90/56, heart rate 109, respirations 23, and temperature 97.8. HEENT: Head normocephalic. CHEST: Bilateral rhonchi. HEART: S1 and S2, regular. EXTREMITIES: No groin hematoma. Right dressing and intraaortic balloon pump insertion in the left groin. LABORATORY DATA: SMA-7: Sodium 129, potassium 5.6, chloride 99, CO2 of 19, glucose 395, BUN 54, creatinine 3.3. The most recent is 501. Hemoglobin and hematocrit 12.1 and 35.3, white count and platelet count are within normal limit. ASSESSMENT: 1. Status post [id number] myocardial infarction and left main stenting. 2. Cardiogenic shock with intraaortic balloon pump insertion. 3. Advanced renal insufficiency and hyperkalemia. RECOMMENDATIONS: Case was discussed with Dr. Gaspar, who will be managing the patient as the primary sales marketing coordinator. I agree with current medications and the plan is to transfer the patient to a tertiary facility for Impella insertion, either at [place] or at [facility]. Facundo Morejon MD [facility] # [id number]
--- NOTE | 2017-07-16 22:03 | CARD ---
APPROVED REPORT EKG Measurement Heart [id number] <Conclusion> Sinus rhythm Cannot rule out Anterior infarct, age undetermined ST & T wave abnormality, consider inferolateral ischemia Abnormal ECG
--- NOTE | 2017-07-17 07:24 | CARD ---
APPROVED REPORT EXAM: LIMITED Two-dimensional and color doppler INDICATION Chest Pain PR <Conclusion> Limited and suboptimal study Left ventricle: thickness: normal; size: normal; overall ejection fraction: 65%: diastolic filling pressures:indeterminate Mitral valve: annulus: normal: leaflets: normal: excursion: normal; indeterminate trans-mitral gradient: no significant incompetence: left atrium: normal Aortic valve: leaflets: normal: excursion: normal;indeterminate trans-aortic gradient: No significant incompetence: aortic root: normal Right sided Structures: Tricuspid valve: normal; no significant incompetence: Intra-cardiac hemodynamics: indeterminate No pericardial effusion
--- NOTE | 2017-07-17 12:01 | CARD ---
APPROVED REPORT EXAM: Two-dimensional and M-mode echocardiogram with Doppler and color Doppler. Other Information Quality : TDSRhythm : INDICATION Cardiac Disease: CAD Chest Pain RISK FACTORS Hyperlipidemia M-Mode DIMENSIONS Left Atrium (MM)3.26 (2.5-4.0cm)IVSd1.22 (0.7-1.1cm) Aortic Root3.30 (2.2-3.7cm)LVDd5.86 (4.0-5.6cm) Aortic Cusp Exc.1.48 (1.5-2.0cm)PWd1.18 (0.7-1.1cm) FS (%) 27 %LVDs4.28 (2.0-3.8cm) LVEF (%)52 (>50%) Mitral Valve MV E Yxdidzwu45.6cm/sMV A Srcjpefj25.4cm/sE/A ratio2.3 TDI E/Lateral E'0.0E/Medial E'0.0 <Conclusion> Limited study with off axis views Left ventricle: thickness: normal; size: dilatedl; overall ejection fraction: 60%: diastolic filling pressures: elevated Mitral valve: grossly normal no significant incompetence: left atrium: normal Aortic valve: grossly normal; no significant trans-aortic gradient: No significant incompetence: aortic root: normal Right sided Structures: Pulmonary valve: not visualized no significant incompetence; Tricuspid valve: normal; no significant incompetence: Intra-cardiac hemodynamics: pulmonary systolic pressures: normal; central venous pressures: normal No pericardial effusion
--- NOTE | 2017-07-19 00:08 | CP.PCM.PN ---
Subjective - Date & Time of Evaluation Date of Evaluation: 07/15/17 Time of Evaluation: 06:00 - Subjective Subjective: CCM Pt having cardiac cath for STEMI had code called and when seen on cath table had hypoxic resp failure. Intubated with 8.0 mm ETT after etomidate 20 mg. Bilat bs. EZ cap-->yellow. CXR requested. Objective - Vital Signs/Intake and Output Vital Signs (last 24 hours): Temp Pulse Resp BP Pulse Ox 97.8 F 105 H 21 142/83 94 L 07/15/17 12:00 07/15/17 15:00 07/15/17 15:00 07/15/17 14:39 07/15/17 15:00 - Labs Labs: 07/15/17 09:46 07/15/17 09:46
--- NOTE | 2017-08-20 22:27 | CARDCATH ---
PROCEDURE DATE: 07/15/2017 INDICATIONS: Rolf Gregory is a 71-year-old male with history of hypertension, diabetes, peripheral vascular occlusive disease, who presented to [facility] with complains of epigastric discomfort and mental status changes. The patient's initial troponin was borderline positive and then subsequently had repeat troponins at 3 in the morning, which came back at 00:29 became hypotensive and started to go into shock and was started on pressors and emergently transferred over to [facility] for emergent left heart catheterization. PROCEDURE PERFORMED: Emergent left heart catheterization with selective left and right coronary angiogram, left ventriculogram, insertion of intra-aortic balloon pump for hemodynamic support. Emergent PTCA stenting of left main 99% stenosis with deployment of D5/18 Xience drug-eluting stent, lesion reduction from 99% to 0% and MAX-3 flow, 6-Kiswahili right femoral arterial access and Mynx closure device for hemostasis. A 7-Kiswahili left femoral artery, intraaortic balloon pump. TECHNIQUES OF PROCEDURE: After obtaining informed consent, the patient was emergently brought to the clinical lab scientist for evaluation of cardiogenic shock with ST elevation ID. Selective left coronary angiogram reveal high grade left main stenosis 99%. LV gram was obtained, which showed global hypokinesis with EF of 25%. Subsequently, the patient had a PEA cardiac arrest requiring short CPR for 5 minutes. Subsequently emergent intra-aortic balloon pump was placed in the LAD and left circumflex coronary vessels were wide with double wire technique. The balloon was inflated in the left main transiently and stent 3.5 x 18 mm Xience drug eluting stent was deployed in an expeditious manner. At this point, the patient's hemodynamic had stabilized. There was good distal flow noted both in the LAD and left circumflex territory and final angiogram done showed good flow. The patient subsequent to facing the left main artery, the right coronary angiogram was obtained, which showed uczw-st-kxmziufk diffuse disease 30% to 40% mid and 30% instant stenosis. Coronary angiographic findings left main 99% stenosis in the body and LAD mid 50% left circumflex patent obtuse marginal patent 0% stenosis. IMPRESSION: Successful emergent percutaneous transluminal coronary angioplasty stenting of 99% left main stenosis, deployment of 3.5 x 18 Xience drug-eluting stent regeneration from 99% to 0% MAX-3 flow. Successful insertion of intraaortic balloon pump with hemodynamic support. RECOMMENDATIONS: The patient in critical stage post CPR for PEA, cardiac arrest, post successfully vascularization of severe left main disease. Continue hemodynamic support with intra-aortic balloon pump. The patient is to be kept in the in ICU and transferred to [place] for escalation of hemodynamic support. Guideline directed therapy for CAD. Geoff Gaspar MD
== END 2017-07-15 15:30 | disposition short-term general hospital (02) | DRG 549 ==
LOC: C.ER 03:53 → C.9I 07:13
PROVIDERS: ADMIT Hospitalist; ATTEND Hospitalist
PROC: 5A02210 Assistance with Cardiac Output using Balloon Pump, Continuous (ICD-10-PCS; principal; 2017-07-15)
PROC: 027034Z Dilation of Coronary Artery, One Artery with Drug-eluting Intraluminal Device, Percutaneous Approach (ICD-10-PCS; 2017-07-15)
PROC: B2111ZZ Fluoroscopy of Multiple Coronary Arteries using Low Osmolar Contrast (ICD-10-PCS; 2017-07-15)
PROC: 4A023N7 Measurement of Cardiac Sampling and Pressure, Left Heart, Percutaneous Approach (ICD-10-PCS; 2017-07-15)
PROC: B2151ZZ Fluoroscopy of Left Heart using Low Osmolar Contrast (ICD-10-PCS; 2017-07-15)
DX: I21.4 Non-ST elevation (NSTEMI) myocardial infarction (principal); R57.0 Cardiogenic shock; J96.91 Respiratory failure, unspecified with hypoxia; J18.9 Pneumonia, unspecified organism; E11.65 Type 2 diabetes mellitus with hyperglycemia; E87.5 Hyperkalemia; I10 Essential (primary) hypertension; I25.10 Atherosclerotic heart disease of native coronary artery without angina pectoris; E11.9 Type 2 diabetes mellitus without complications; Z79.4 Long term (current) use of insulin